=== PATIENT | male | born 1995 | race Caucasian/White ===

== ENCOUNTER 2018-12-10 00:26 | Emergency (ER) | payer MEDICAID ==
[2018-12-10] MEDS ORDERED: LORazepam 0.5 MG TAB PO ONE (01:00)
[2018-12-10] MEDS ORDERED: ONDANSETRON DISINTEGRATING 4 MG TAB PO ONE (01:00)
--- NOTE | 2018-12-10 01:01 | EDPHY ---
General - History Smoking Status: Never smoked Time Seen by Provider: 12/10/18 00:45 Narrative: CLINICAL IMPRESSION: Nausea, tremors ASSESSMENT/PLAN: 23 year old male presents to the emergency department after he consumed 11 Red Bull drinks over a course of 5 hr this evening. Patient reports he was "doing this over a bet with friends". He states he read online to give it 4-5 hours but after 5 hr he came to the ED. He is complaining of feeling tremulous and nauseous with generalized abdominal discomfort. He reports no chest pain, palpitations or prior cardiac history. Vital signs have remained stable during ED stay. Patient appears well hydrated. Abdomen is soft without focal peritoneal findings. He was given oral Zofran and Ativan, observed, and felt much better. He was able to tolerate water and ambulate to the restroom without difficulty. I encouraged primary care follow-up, warning signs for return to ED sooner outlined and discharge. DIFFERENTIAL DX: Differential diagnosis for this patient includes but not limited to alcohol intoxication, other substance abuse or withdrawal, toxidrome or medication overdose, other electrolyte abnormality. ED PROCEDURES: See lab and/or imaging results below ED COURSE: 1:50 a.m.: Patient reassessed, states he is feeling much better, able to walk to the restroom, able to drink water. Would like to be discharged home. CHIEF COMPLAINT: Consumed 11 Red Bull's over 5 hr, now feeling nauseous and shaky HPI: 23-year-old male presents to the emergency department with complaints of tremors , feeling mildly anxious and nauseous after he consumed 11 Red Bull drinks over a course of 5 hr tonight. Patient states he did this over a bet with friends. He observed symptoms at home but came to the ER when he continued to feel poorly. He has no prior medical history or history of cardiac or pulmonary disease. He denies chest pain, palpitations, shortness of breath, back pain. He has generalized abdominal discomfort and has vomited a couple times. No bloody emesis. He has not taken anything for his symptoms. He denies any other Co ingestions. PAST MEDICAL HISTORY: None reported See nurse/triage notes for additional history if applicable Pertinent Past Surgical History: None reported Family History: None reported Social History: Here with his significant other REVIEW OF SYSTEMS: All other systems negative Constitutional: No fever, no chills, appetite change. Eyes: No discharge, vision change Cardiovascular: No chest pain, no palpitations. Respiratory: No cough, no shortness of breath. Gastrointestinal: Mild generalized abdominal pain, positive for nausea and vomiting, denies diarrhea. Musculoskeletal: No back pain, joint swelling, joint pain, myalgias. Skin: No rashes, color change. Neurological: No headache, positive for tremors, positive for mild dizziness, denies weakness. PHYSICAL EXAM: General Appearance: Alert, oriented, appropriate, cooperative, NAD, well hydrated, non-toxic appearing, VSS, no hypoxia. HEENT: Oropharynx clear is no erythema or exudates, no tonsillar hypertrophy or asymmetry. Dentition without abnormality.] Eyes: PERRLA, no acute vision change, nystagmus, swelling, discharge, pain or photosensitivity. Conjunctiva pink, no pallor or injection Neck: Supple, nontender, no lymphadenopathy, no midline pain, FROM, no meningismus. Respiratory: There are no retractions, lungs are clear to auscultation. Cardiac: Regular rate and rhythm, no murmurs or gallops. Gastrointestinal: Abdomen is soft, nontender, bowel sounds normal, no masses/ hernia, no rigidity, guarding or focal peritoneal findings. Neurological: Alert and oriented x 3, CN 2-12 grossly intact, normal gait no ataxia, DTR's intact, normal sensation and strength Skin: Warm, dry, no rashes, no nodules on palpation. MEDICAL DECISION MAKING: Patient was seen independently. Secondary supervising physician at time of evaluation was Dr. Butterfield . Diagnosis: Tremors, nausea, dizziness. New, requires workup Summary: See Assessment and Plan for summary of ED visit Patient Progress: Improved, stable for discharge. (Han Beebe) PHYSICIAN DOCUMENTATION: The patient was evaluated and managed by the Physician Flux Plant Operator. My co- signature indicates that I have reviewed this chart and I agree with the findings and plan of care as documented. I am the secondary supervising physician. (Halley Butterfield) - Objective Vital Signs: Initial Vital Signs Temperature (C) 36.8 C 12/10/18 00:34 Heart Rate 94 12/10/18 00:34 Respiratory Rate 18 12/10/18 00:34 Blood Pressure 151/90 H 12/10/18 00:34 O2 Sat (%) 99 12/10/18 00:34 O2 Delivery Mode Room Air Allergies/Adverse Reactions: Sulfa (Sulfonamide Antibiotics) Allergy (Verified 12/10/18 00:36) Home Medications: Medication Instructions Recorded NK [No Known Home Meds] 12/10/18 Medications Given: Discontinued Medications Lorazepam (Ativan) 0.5 mg PO EDNOW ONE Stop: 12/10/18 01:01 Last Admin: 12/10/18 01:08 Dose: 0.5 mg Ondansetron HCl (Zofran Odt) 4 mg PO EDNOW ONE Stop: 12/10/18 01:01 Last Admin: 12/10/18 01:08 Dose: 4 mg Ondansetron HCl (Zofran Odt 4 Mg Prepack#2) 1 btl TAKEHOME EDNOW ONE Stop: 12/10/18 01:54 Last Admin: 12/10/18 02:05 Dose: 1 btl Departure - Departure Disposition: Home, Routine, Self-Care Clinical Impression: Nausea & vomiting Qualifiers: Vomiting type: unspecified Vomiting Intractability: non-intractable Qualified Code(s): R11.2 - Nausea with vomiting, unspecified Condition: Good Instructions: Ondansetron (By mouth), Acute Nausea and Vomiting (ED) Additional Instructions: DISCHARGE INSTRUCTIONS FROM YOUR DOCTOR Thank you for visiting our emergency department today. You were treated by a physician campaign assistant today and your case was reviewed with our ED Attending physician. Please keep in mind that discharge from the emergency department does not mean that there is nothing wrong - it simply means that we have not identified an emergency condition that requires further evaluation or treatment in the hospital. You should always plan to follow up with primary care for re- evaluation of your condition in the next 2-3 days. If you have been referred to a specialist, please call as soon as possible (today or tomorrow) to schedule your follow up appointment at the appropriate time. YOU RECEIVED ZOFRAN AND ATIVAN IN THE EMERGENCY ROOM. VITALS REMAINED STABLE. PLEASE STAY WELL HYDRATED. USE ZOFRAN IF NEEDED FOR NAUSEA. FOLLOW UP WITH A PRIMARY CARE DOCTOR. RETURN TO THE EMERGENCY DEPARTMENT FOR WORSENING SYMPTOMS , CHEST PAIN, PALPITATIONS, SHORTNESS OF BREATH, PERSISTENT VOMITING, ABDOMINAL PAIN, ALTERED MENTAL STATUS, SEIZURES OR ANY OTHER CONCERNS. People present with illnesses and injuries in different ways, and it is always possible that we have missed something. You may always return for re-evaluation if symptoms worsen or if they are not improving or if you develop new/different symptoms. Again, thank you for choosing our emergency department. We hope that you feel better. Referrals: NONE *PRIMARY CARE P,. [Primary Care Provider] - As per Instructions Aaliyah David MD [Medical Doctor] - 2-3 days, call for appt.
[2018-12-10] MEDS ORDERED: ONDANSETRON 4MG PREPACK#2 BTL TAKEHOME ONE (01:53)
[2018-12-10 02:09] VITALS: BP 151/85
== END 2018-12-10 02:08 | disposition home or self-care (01) ==
DX: R11.2 Nausea with vomiting, unspecified (principal); R25.1 Tremor, unspecified